=== PATIENT | female | born 2000 | race Caucasian/White ===

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

== ENCOUNTER 2018-06-19 12:36 | Emergency (ER) | payer MEDICAID ==
[~2018-06-19] VITALS: Ht 167.6 cm; Wt 91.0 kg
[~2018-06-19 12:36] MED LIST: ACET-2178 PO; ACET250T3 PO; ASCO100T12 PO; ASPI-986 PO; ATOR40TA70 PO; CHOL100044 PO; FAMO20TA8 PO; GLIP5TAB12 PO; HYDR-4134 PO; HYDR25TA PO; LISI10TA5 PO; METF500T6 PO; METO-293 PO; OMEP20CA10 PO
[2018-06-19] MEDS ORDERED: LEVETIRACETAM 500MG PREMIX 100 ML IV ONE (13:30)
[2018-06-19 14:15] LABS: BASOPHILS % 0.5 % (0.0-2.0); EOSINOPHILS % 0.9 % (0.0-5.0); HEMATOCRIT. 35.4 % (36.0-48.0); HEMOGLOBIN. 12.2 g/dL (12.0-16.0); LYMPHOCYTES % 20.6 % (20.0-50.0); MEAN CORPUSCULAR HEMOGLOBIN 28.5 pg (28.0-32.0); MEAN CORPUSCULAR VOLUME 82.7 fL (81.0-99.0); MEAN PLATELET VOLUME 9.3 fl (7.4-10.4); MONOCYTES % 6.5 % (2.0-8.0); NEUTROPHILS % 71.5 % (40.0-76.0); PLATELET 269 x1000/uL (130-400); RED BLOOD CELL COUNT 4.28 mill/uL (4.2-5.4); RED CELL DISTRIBUTION WIDTH 13.8 % (11.6-14.6)
[2018-06-19 14:22] LABS: CHLORIDE 103 mEq/L (98-107)
[2018-06-19 14:27] LABS: ETHANOL BLOOD < 10 mg/dL
[2018-06-19 14:54] LABS: CLARITY URINE CLOUDY (CLEAR); COLOR URINE YELLOW (YELLOW); KETONES URINE NEGATIVE (NEGATIVE); LEUKOCYTE ESTERASE URINE 3+ (NEGATIVE); NITRITE URINE NEGATIVE (NEGATIVE); OCCULT BLOOD URINE NEGATIVE (NEGATIVE); PROTEIN URINE 2+ (NEGATIVE); SPECIFIC GRAVITY URINE 1.025 (1.005-1.030)
[2018-06-19 15:00] VITALS: BP 132/68
[2018-06-19 15:14] LABS: *AMPHETAMINES SCREEN URINE NEGATIVE (NEGATIVE); *BARBITURATES SCREEN URINE NEGATIVE (NEGATIVE)
[2018-06-19 15:15] LABS: *BENZODIAZEPINES SCREEN URINE NEGATIVE (NEGATIVE); *COCAINE SCREEN URINE NEGATIVE (NEGATIVE); CANNABINOID URINE SCREEN NEGATIVE (NEGATIVE); METHADONE URINE SCREEN NEGATIVE (NEGATIVE); OPIATES URINE SCREEN NEGATIVE (NEGATIVE); PHENCYCLIDINE URINE SCREEN NEGATIVE (NEGATIVE)
== END 2018-06-19 15:30 | disposition home or self-care (01) ==
LOC: ER 12:36
DX: R56.9 Unspecified convulsions (principal); N39.0 Urinary tract infection, site not specified; E11.9 Type 2 diabetes mellitus without complications; E03.9 Hypothyroidism, unspecified; Z79.899 Other long term (current) drug therapy
CPT/HCPCS: 36415; 80053; 80305; 81003; 81025; 85025; 87086; 93005; 96365; 99285; G0482; J1953; Z7610